=== PATIENT | female | born 1985 | race Hispanic/Latino ===

== ENCOUNTER 2017-06-20 09:52 | Outpatient (CLI) | payer OTHER ==
[2017-06-20 11:23] LABS: Bilirubin Negative (Negative); Blood, Urine Small (Negative); Clarity CLEAR (Clear); Glucose, Urine (Dipstick) Negative (Negative); Leukocyte Negative (Negative); Nitrite Negative (Negative); Protein, Urine (Dipstick) Negative (Neg-Trace); Specific Gravity, Urine 1.009 (1.002-1.036); Urobilinogen 0.2 mg/dL (0.2-1.0)
[2017-06-20 11:29] LABS: Bacteria/HPF None Seen HPF (None Seen); Hyaline Casts/LPF 0-3 HYALINE CAST LPF (0-3 Hyaline); RBC/HPF 0-3 HPF (0-3); Squamous Epithelial None Seen HPF (0-3); WBC/HPF None Seen HPF (0-3)
[2017-06-20 11:31] LABS: Anion Gap 11 mmol/L (10-20); BUN (Urea Nitrogen) 11 mg/dL (7.0-18.7); Calc. Creatinine Clearance 0 mL/min (70-130); Calcium 9.6 mg/dL (7.8-10.44); Carbon Dioxide 29 mmol/L (22-29); Chloride 102 mmol/L (98-107); Estimated GFR-MDRD Greater than 90; Glucose 76 mg/dL (70-105); Potassium 3.9 mmol/L (3.5-5.1); Sodium 138 mmol/L (136-145)
--- NOTE | 2017-06-20 12:10 | RAD ---
KUB: History: Renal calculi. Comparison: 06-02-16 FINDINGS: The bowel gas pattern is nonobstructive. The left renal outline is partially obscured by gas. There i s questionable tiny lower pole renal calculus on the left without a definite right sided calculus. IMPRESSION: Questionable tiny punctate lower pole left renal calculus. It is difficult to definitely visualize th e right renal calculi seen on the previous 06-02-16 study. POS: OFF
--- NOTE | 2017-06-20 12:33 | ULT ---
RENAL ULTRASOUND: Date: 06-20-17 Comparison: 06-02-16 History: Renal stone disease. Technique: Multiplanar grayscale sonographic imaging of the kidneys and urinary bladder obtained. FINDINGS: There is a 5 mm echogenic focus within the mid pole of the right kidney which may represent a small s tone. The right kidney measures 9.5 x 3.8 x 5.1 cm. No renal mass or hydronephrosis seen on the right . The left kidney measures 10.4 x 5.1 x 3.9 cm and demonstrates no obvious stone, hydronephrosis or mas s. Imaging of the urinary bladder is grossly unremarkable. Pre void imaging demonstrates full emptyin g of the bladder. Pre void urinary bladder volume is 351 cc. IMPRESSION: 1. Probable subcentimeter stone within right kidney. Degree of stone disease could be better assessed via CT if clinically warranted. No hydronephrosis on either side. POS: [facility]
== END 2017-06-20 09:53 | disposition home or self-care (01) ==
LOC: ULT 09:52
PROVIDERS: ATTEND Urology
DX: N20.0 Calculus of kidney (principal)
CPT/HCPCS: 74018; 76770; 80048; 81001; 87086

== ENCOUNTER 2018-07-08 13:02 | Outpatient (CLI) | payer OTHER ==
[2018-07-08 13:39] LABS: Bilirubin Negative (Negative); Blood, Urine Trace (Negative); Clarity Clear (Clear); Glucose, Urine (Dipstick) Negative (Negative); Leukocyte Negative (Negative); Nitrite Negative (Negative); Protein, Urine (Dipstick) Negative (Neg-Trace); Specific Gravity, Urine 1.015 (1.005-1.030); Urobilinogen 0.2 mg/dL (0.2-1.0); pH, Urine 7.5 (5.0-9.0)
[2018-07-08 13:49] LABS: Bacteria/HPF None Seen HPF (None Seen); RBC/HPF 0-3 HPF (0-3); Squamous Epithelial 0-3 HPF (0-3); WBC/HPF 0-3 HPF (0-3)
[2018-07-08 14:00] LABS: Anion Gap 12 mmol/L (10-20); BUN (Urea Nitrogen) 8 mg/dL (7.0-18.7); Calc. Creatinine Clearance 0 mL/min (70-130); Calcium 9.1 mg/dL (7.8-10.44); Carbon Dioxide 26 mmol/L (22-29); Chloride 105 mmol/L (98-107); Estimated GFR-MDRD Greater than 90; Glucose 86 mg/dL (70-105); Potassium 3.6 mmol/L (3.5-5.1); Sodium 139 mmol/L (136-145)
--- NOTE | 2018-07-08 15:32 | RAD ---
FRONTAL VIEW ABDOMEN KUB: Indications: Stone, follow up. Comparison: 06-20-17 FINDINGS: Left renal shadow is largely obscured by bowel content. No discrete calculus in this region is confir med. Punctate density overlying the midportion right renal shadow may relate to punctate nephrolithia sis. Stable phlebolith seen at the right hemipelvis. There are metallic clips at the medial right upper quadrant again seen. IMPRESSION: 1. Punctate density overlying the right renal shadow may relate to nephrolithiasis. 2. Bowel content does obscure left renal shadowing from view limiting assessment. POS: [facility]
--- NOTE | 2018-07-08 15:39 | ULT ---
RENAL ULTRASOUND: HISTORY: History of renal calculi. TECHNIQUE: Multiple longitudinal and transverse images of the kidneys and bladder are obtained using a Multi-Her tz curvilinear transducer. Real-time and color-flow images are obtained. FINDINGS: The right kidney measures 11.0 and the left kidney 11.5 cm, from pole to pole. Bilateral ureteral je ts are visualized. There is no significant evidence of hydronephrosis. Minimal prominence of the ri ght renal pelvis is seen. No evidence of renal calculi are seen. The urinary bladder is unremarkabl e. IMPRESSION: No definite evidence of obstructing calculi seen. POS: [facility]
== END 2018-07-08 13:03 | disposition home or self-care (01) ==
LOC: SCSULT 13:02
PROVIDERS: ATTEND Urology
DX: N20.0 Calculus of kidney (principal); R35.0 Frequency of micturition; N28.89 Other specified disorders of kidney and ureter
CPT/HCPCS: 36415; 74018; 76770; 80048; 81001; 87086

== ENCOUNTER 2024-10-22 08:44 | Outpatient (CLI) | payer OTHER | END 2024-10-22 08:45 | disposition home or self-care (01) | LOC: BICRAD 08:44 | PROVIDERS: ATTEND Urology | DX: N20.2 Calculus of kidney with calculus of ureter (principal); Z96.0 Presence of urogenital implants | CPT/HCPCS: 74018 ==